=== PATIENT | male | born 1995 | race Caucasian/White ===

== ENCOUNTER 2017-08-30 20:42 | Emergency (ER) | payer MEDICAID, OTHER ==
[2017-08-30] MEDS: ALPRAZOLAM 0.25 MG TAB PO (22:44)
== END 2017-08-31 00:17 | disposition home or self-care (01) ==
LOC: E/R 08-31 00:17
DX: F15.10 Other stimulant abuse, uncomplicated (principal); F17.210 Nicotine dependence, cigarettes, uncomplicated; R07.2 Precordial pain; R40.2142 Coma scale, eyes open, spontaneous, at arrival to emergency department; R40.2252 Coma scale, best verbal response, oriented, at arrival to emergency department; R40.2362 Coma scale, best motor response, obeys commands, at arrival to emergency department
CPT/HCPCS: 70450; 93005; 99284-25